=== PATIENT | female | born 1995 | race Caucasian/White ===

== ENCOUNTER 2025-03-04 08:52 | Emergency (ER) | payer OTHER, SELFPAY ==
[2025-03-04 08:57] VITALS: BP 108/69; PULSE 94; RESP 18; TEMP 37; O2SAT 100; BMI 19.2
--- NOTE | 2025-03-04 09:24 | ED_ITS ---
HPI - General Adult General Chief complaint: Sore Throat Stated complaint: possible strep throat Time Seen by Provider: 03/04/25 09:04 History of Present Illness HPI narrative: Patient is a 30-year-old woman who comes in today with a 2 day history of pharyngitis. She has had no fevers no chills no night sweats. Her children have croup but no strep. She has been eating and drinking normally. She has no cough no sputum production. She does not smoke but she does vape. Patient has no other major complaints or concerns. Related Data Previous Rx's ?Medication ?Instructions ?Recorded prednisone 20 mg tablet 20 mg PO BID #10 tabs Allergies Allergy/AdvReac Type Severity Reaction Status Date / Time No Known Drug Allergies Allergy Verified 03/04/25 09:00 Review of Systems Status of ROS: Reports: 10 or more systems reviewed and unremarkable except as noted in History and below Exam Narrative: Exam Narrative: EXAM GENERAL: Patient appears comfortable and well. EYES: No scleral icterus. ENT: Tympanic membranes normal with injection of the oropharynx. THYROID: no thyroid nodules or thyromegaly. LYMPH: No supraclavicular or cervical lymphadenopathy. SKIN: Visible skin seen during exam normal or with benign process only. EXT: No dependent lower extremity pedal edema. HEART: Regular rate and rhythm with no murmurs, rubs, or gallops. LUNGS: Clear to auscultation bilaterally with no crackles or wheezes. ABD: Soft, non tender, non distended. PSYCH: Good eye contact, speech is not pressured. Const: Vital Signs, click to edit/add: Vital Signs - 24 hr 03/04/25 08:57 Temperature 98.6 F Pulse Rate [Right Pulse Oximeter] 94 Respiratory Rate 18 Blood Pressure [Ri ght Upper Arm] 108/69 Pulse Oximetry 100 Oxygen Delivery Me thod Room Air Course Course ED Course: Patient seen examined rapid strep pending. Vital Signs Vital signs: Initial Vital Signs Temperature 98.6 F 03/04/25 08:57 Temperature Source Temporal Artery Scan 03/04/25 08:57 Pulse Rate 94 03/04/25 08:57 Pulse Rhythm Regular 03/04/25 08:57 Pulse Strength 3+ Normal 03/04/25 08:57 Respiratory Rate 18 03/04/25 08:57 Blood Pressure 108/69 03/04/25 08:57 Blood Pressure Mean 82 03/04/25 08:57 Blood Pressure Position Sitting 03/04/25 08:57 Pulse Oximetry 100 03/04/25 08:57 Oxygen Delivery Method Room Air 03/04/25 08:57 Vital Signs Temperature 98.6 F 03/04/25 08:57 Pulse Rate 94 03/04/25 08:57 Respiratory Rate 18 03/04/25 08:57 Blood Pressure 108/69 03/04/25 08:57 Pulse Oximetry 100 03/04/25 08:57 Oxygen Delivery Method Room Air 03/04/25 08:57 Temperature 98.6 F 03/04/25 08:57 Pulse Rate 94 03/04/25 08:57 Respiratory Rate 18 03/04/25 08:57 Blood Pressure 108/69 03/04/25 08:57 Pulse Oximetry 100 03/04/25 08:57 Oxygen Delivery Method Room Air 03/04/25 08:57 Medical Decision Making MDM Narrative Medical decision making narrative: Patient's rapid strep comes back negative. She has no other signs of bacterial infection. She does have a tobacco/vaping history and her pain is quite severe. I see no evidence of peritonsillar abscess. I did place her on a short course of prednisone and asked her to continue to take Tylenol as needed. She follow- up with her primary physician as needed. Lab Data Labs: Lab Results 03/04/25 Range/Units 09:15 SARS-CoV-2 (PCR) Negative SARS-CoV-2 (Negative) Influenza Type A (PCR) Negative PCR FLU A (Negative) Influenza Type B (PCR) Negative PCR FLU B (Negative) RSV (PCR) Negative PCR RSV (Negative) Group A Strep DNA NOT DETECTED (Not Detectd) Discharge Plan Discharge Clinical Impression: Pharyngitis Patient Disposition: Home, Self-Care Condition: Stable Instructions: Pharyngitis (ED) Additional Instructions: Prednisone as directed Tylenol 1000 mg 3 times a day as needed Continue current and activity level Follow-up with your doctor as needed. Activity Level: No Restrictions Discharge Diet: Regular Prescriptions: New prednisone 20 mg tablet 20 mg PO BID Qty: 10 0RF Follow Up/Referrals: Provider,Not a Local [Primary Care Provider, Family Practice] Stand Alone Forms: OUTSIDE THE BOX MARKETINGth Info Instructions
--- OUTSIDE RECORDS SUMMARY | 2025-03-04 09:30 | XMS_ITS | Clinical Summary ---
Author Organization [facility] Address [facility] [place] [address] Care Team Providers Care County Program Technician Name Role Phone Clinic, [facility] Pr ovider Allergies No known active allergies Medications MV-Min-Fe Fum-FA-DHA ( 1 PO) Acti ve ferrous sulfate 45 MG TBCR CR tablet Take 45 mg by mouth daily Active docusate sodium (COLACE) 100 MG capsule Take 100 mg by mouth 2 times daily Active ondansetron (ZOFRAN ODT) 4 MG ODT tab Take 4 mg by mouth as needed 07/24/2023 Active Active Problems Problem Noted Date Diagnosed Date 01/28/2024 delivery delivered 05/02/2020 Indication for care in labor or delivery Encounter for triage in patient 020 Social History Tobacco Use Types Packs/Day Years Used Date Smoking Tobacco: Every Day Cigarettes Smokeless Tobacco: Never Tobacco Cessation:Ready to Q uit: Not Asked; Counseling Given: Not Answered Alcohol Use Standard Drinks/Week Comments Not Currently 0 (1 standard drink = 0.6 oz pur e alcohol) Occasionally [place] Depression Scale Answer Date Recorded Last EPDS Total Score Not on file 01/29/2024 The thought of harming myself has occurred to me . Never 01/29/2024 Adolescent Education Answer Date Record ed Getting School Help Needed Not on file 01/24 Comments No Sex and Gender Information Value Date Recorded Sex Assigned at Not on file Legal Sex Female 12:30 PM CDT Gender Identity Not on file Sexual Orientation Not on file Last Filed Vital Signs Vital Sign Reading Time Taken Comments Blood Pressure 91/52 01/29/2024 8:16 AM CDT Pulse 68 01/29/2024 8:16 AM CDT Temperature 36.5 C (97.7 F) 01/29/2024 8:16 AM CDT Respiratory Rate 16 01/29/2024 8:16 AM CDT Oxygen Saturation 98% 01/29/2024 4:00 AM CDT Inhaled Oxygen Concentration - - Weight 64.4 kg (142 lb) 01/25/2024 11:16 AM CDT Height 170.2 cm (5' 7) 01/25/2024 11:16 AM CDT Body Mass Index 22.24 01/25/2024 11:16 AM CDT Plan of Treatment Health Maintenance Due Date Last Done Comments ADVANCE CARE PLANNING 1994 ANNUAL REVIEW OF HM ORDERS 1994 YEARLY PREVENTIVE VISIT 1997 HEPATITIS C SCREENING 02/18/2012 PAP 04/28/2022 04/28/2019, 07/13/2015 COVID-19 VACCINE ( season) 2024 PHQ-2 (once per calendar year) 2024 INFLUENZA VACCINE (#1) 2025 9, 04/03/2017, 03/07/2016, Additional history exists DTAP/TDAP/TD VACCINE (10 - Td or Tdap) 01/13/2029 01/13/2019, 03/31/2015, 06/24/2012, Additional history exists ZOSTER VACCINE (1 of 2) 02/18/2044 HEPATITIS B VACCINE Completed 1994, 1994, 1994 MENINGITIS VACCINE Aged Out 03/09/2009 No longer eligible based on patient's age to complete this topic HPV VACCINE Completed 06/24/2012, 12/05, 03/09/2009 HIV SCREENING Completed 10/27/2019, 08/08, 10/17/2014 PNEUMOCOCCAL VACCINE: PEDIATRICS (0 to 5 YEARS) AND AT-RISK PATIENTS (6 to 49 YEARS) Aged Out No longer eligible based on patient's age to complete this topic Procedures Procedure Name Priority Date/Time Associated Diagnosis Comments HIV ANTIGEN ANTIBODY COMBO Routine 10/27/2019 from Last 3 Months or Most Recently Relevant to Health Maintenance Results * HIV Antigen Antibody Combo (10/27/2019) HIV Antigen Antibody Combo non reactive Blood specimen (specimen) Patient Reported LAB - BLOOD ORDERABLES Final Re sult from Last 3 Months or Most Recently Relevant to Health Maintenance Insurance none (Work) [id number] [place] [address] [facility] [id number] [place] [address] [facility] Advance Directives For more information, please contact: [phone] * Full Code (Latest Code Status on File) Date Activated Date Inactivated Comments 01/28/2024 10:33 PM 01/29/2024 1:52 PM All basic a nd advanced life-sustaining interventions are performed as appropriate Question Answer Comments Code status determined by: Discussion with juan nt/ legal decision maker Care Teams County Program Technician Relationship Specialty Start Date End Date Clinic, [facility] [address] [address] PCP - General 12/03/22
--- OUTSIDE RECORDS SUMMARY | 2025-03-04 09:30 | XMS_ITS | Clinical Summary ---
Author Organization [facility] Address [address] [place] [address] Care Team Providers Care Production Engine Repairer Name Role Phone Janak Varela MD Primary Care Provider [phone] Source Comments You are receiving this document as you are listed as the primary care provider,follow-up provider, or the patient has been referred to you for consultation.This is in compliance with the Medicare and[facility] EHR Incentive Program,which states Providers who transition their patient to another setting of careor provider of care or refers their patient to another provider of care shouldprovide summary care record for each transition of care or referral. [facility] [employer] Allergies No known active allergies Medications vitamin-ferrous fumarate-folic acid (PRENATALPLUS) 27-1 MG tablet Take 1 Tablet by mouth daily. Active docusate sodium (COLACE) 100 MG capsule Take 100 mg by mouth two times a day. Active sertraline (ZOLOFT) 50 MG tabletIndicatio ns:Moderate episode of recurrent major depressive disorder (HRC),Anxiety (HRC) Take 1 Tablet by mouth daily. 60 Tablet 0 Active Additional Information Patient not taking.Reported on 09/08/2019 Active Problems Problem Noted Date Diagnosed Date Moderate episode of recurrent major depressive d isorder 08/16/2019 Anxiety 08/16/2019 History of herpes genitalis 12/16/2018 Resolved Problems Problem Noted Date Diagnosed Date Resolved Date (spontaneous vaginal delivery) 03/17/2019 04/28/2019 NST (non-stress test) nonreactive 03/16/2019 04/28/2019 Positive GBS test 03/16/2019 04/28/2019 Poor growth affecting management of mother in third trimester 03/12/2019 04/28/2019 Vaginal discharge during pre gnancy in third trimester 03/08/2019 04/28/2019 Supervision of other normal , antepartum 12/16/2018 04/28/2019 Careplan: [facility] 09/03/2018 04/28/2019 Overview (09/03/2018): This patient is enrolled in the [facility] [employer] Program. The program provides patients with support, education, referrals and resources during their . Reason for enrollment: cigarette smoking in Next urine drug screen: Not applicable CPS report:No Housing:Lives with FOB and their 3 year old son Family Home Visiting:No Work: stay at home mom For more information, please contact Brianda Bridges, [facility] Specialist, at [phone]. Herpes 08/16/2019 Immunizations Immunization Administration Dates Next Due 4vHPV (Gardasil) 06/24/2012,12/17/2010, 9 DTaP 12/20/1998, 5,1994,1993,1994 Flu Vac (3+ yrs) 04/03/2017, 5,06/24/2012,2008 HepA Ped/Adol (1-18 yrs) 01/12/2007,02/24/2006 HepB Ped/Adol (0-18 yrs) 1994,1994,0 1994 IPV (Polio) 12/20/1998, 5,1994,1993 Influenza IIV4 (Quadrivalent ) 0.5mL (72768) 04/19/2019,03/07/2016,03/17/2014 MCV4 (Menactra) 03/09/2009 MMR 12/20/1998,02/20/1995 Tdap 01/13/2019, 5,06/24/2012,2003 Family History Medical History Relation Name Comments High Cholesterol Mother Hypertension Mother No Known Problems Maternal Grandfather Hypertension Maternal Grandmother Cancer Paternal Grandfather Lymphom a Diabetes Paternal Grandfather Cancer Paternal Grandmother Lung Cancer, Breast Negative Family History Cancer, Colon Negative Family History Cancer, Ovary Negative Family History Heart Disease Negative Family History Osteoporosis Negative Family History Stroke Negative Family History Thyroid Disorder Negative Family History Relation Name Status Comments Father Alive Mother Alive Maternal Grandfather Alive Maternal Grandmother Alive Paternal Grandfather Paternal Grandmother Sister Lisa Alive Social History Tobacco Use Types Packs/Day Years Used Date Smoking Tobacco: Every Day Cigarettes 0.3 10 Smokeless Tobacco: Current Tobacco Cessation:Ready to Q uit: No; Counseling Given: No Comments:cutting down. Alcohol Use Standard Drinks/Week Comments No 0 (1 standard drink = 0.6 oz pur e alcohol) quit with AUDIT-C Answer Date Recorded Frequency of Alcohol Consumption Never 10/31/2018 Average Number of Drinks Not on file 019 Frequency of Binge Drinking Not on file 10/06 Depression Answer Date Recor ded Last EPDS Total Score 15 01/22/2020 Last EPDS Self Harm Result 0-->never 01/21 Comments Unknown Sex and Gender Information Value Date Recorded Sex Assigned at Not on file Legal Sex Female 1:08 PM CDT Gender Identity Not on file Sexual Orientation Not on file Occupation Industry Job Start Date Job End Date homemaker Not on file Not on file Not on file Last Filed Vital Signs Vital Sign Reading Time Taken Comments Blood Pressure 112/77 09/08/2019 4:43 PM DRY KILN FEEDER Pulse 96 09/08/2019 4:43 PM DRY KILN FEEDER Temperature 36.6 C (97.9 F) 09/08/2019 4:43 PM DRY KILN FEEDER Respiratory Rate 12 09/08/2019 4:43 PM DRY KILN FEEDER Oxygen Saturation 100% 09/08/2019 4:43 PM DRY KILN FEEDER Inhaled Oxygen Concentration - - Weight 56.7 kg (125 lb) 07/16/2019 2:26 PM DRY KILN FEEDER Height 170.2 cm (5' 7) 03/16/2019 11:55 AM CDT Body Mass Index 19.58 03/16/2019 11:55 AM CDT Plan of Treatment Health Maintenance Due Date Last Done Comments Hep C Screening (Preventive Services) 1994 Adult Preventive Visit 02/18/2012 Pneumococcal Vaccine (1 of 2 - PCV) 2013 Cervical Cancer Screening 04/28/20222018, 07/13/2015 (Completed) COVID-19 Vaccine ( season) 2024 Influenza Vaccine (#1) 2025 9, 04/03/2017, 03/07/2016, Additional history exists DTaP/Tdap/Td Vaccine (10 - Tdap) 01/13/2029 01/13/2019, 03/31/2015, 06/24/2012, Additional history exists Zoster/Shingles Vaccine (1 of 2) 02/18/2044 HepB Vaccine Completed 1994, 04/06, 1994 IPV (Polio) Vaccine Completed 12/20/1998, 1994, 1994, Additional history exists HepA Vaccine Completed 01/12/2007, 02/24/2006 MCV4 Vaccine Aged Out 03/09/2009 No longer eligi ble based on patient's age to complete this topic HPV Vaccine Completed 06/24/2012, 12/05, 03/09/2009 Chlamydia Discontinued 09/02/2018, 01/2016, 10/17/2014 (Completed), Additional history exists HIV Screening (Preventive Services) Completed 09/02/2018, 10/17/2014, 10/17/2014 (Completed) Hib Vaccine Aged Out No longer eligi ble based on patient's age to complete this topic Meningococcal B Vaccine Aged Out No l onger eligible based on patient's age to complete this topic Procedures Procedure Name Priority Date/Time Associated Diagnosis Comments CYTOLOGY (PAP) Routine 04/28/2019 11:29 AM CDT Screening for malignant neoplasm of cervix CHLAMYDIA & GC (14 YEARS & OLDER) Routine 09/02/2018 12:20 PM DRY KILN FEEDER Screening examination for venereal disease HIV-1 P24 AND HIV-1/HIV-2 ANTIBODIES Routine 09/02/2018 12:15 PM DRY KILN FEEDER Screening examination for venereal disease from Last 3 Months or Most Recently Relevant to Health Maintenance Results * PAP Test (04/28/2019 11:29 AM CDT) Case Report Pap Case: [id number] Authorizing Provider: Tiarra Lara MD Collected: 04/28/2019 11:29 AM Ordering Location: [facility] Received: 04/28/2019 12:23 PM Obstetrics/Gynec ology First Screen: Rosanna Urena CT (ASCP) Specimen: Pap Test, Routine, Cervix/Endocervix 04/29/2019 3:13 PM CDT [facility] Pap Specimen Adequacy Satisfactory for evaluation, endocervical/meyers sformation zone component present. 04/29/2019 3:13 PM CDT [facility] Pap Interpretation Negative for intraepithelial lesion or malignancy (NILM). 04/29/2019 3:13 PM CDT [facility] at 1513 CDT Gross Description The specimen is received in SurePath fixative and properly labeled. 1 Pap-stained SurePath slide is prepared. 04/29/2019 3:13 PM CDT [facility] Pap Disclaimer The Pap test is a screening test designed to aid in the detection of cervical cancer and its precursor lesions. It is not a diagnostic procedure and should not be used as the sole means of detecting cervical cancer. Both false-positive and false-negative reports may occur. 04/29/2019 3:13 PM CDT [facility] Embedded Images 3:13 PM CDT [facility] Other Specimen Type ENTIRE ENDOCERVIX / Unknown 04/28/2019 11:29 AM CDT 04/28/2019 12:23 PM CDT Comment:LMP: Patient's last menstrual period was 06/26/2018 (exact date). us Tiarra Lara MD LAB PATHOLOGY Final Result [facility] [address] [place] [address], [facility] * CHLAMYDIA & GC (09/02/2018 12:20 PM DRY KILN FEEDER) Chlamydia Trachomatis STD Negative Negative PN SOFT Comment: Test Performed by Public Accountant [employer] CLIA Number [id number] N. gonorrhoeae STD Negative Negative PN SOFT Comment: Test Performed by Public Accountant Mediated Amplification Performed at [facility], [address] [place] [id number] CLIA Number [id number] Source STD Cervix PN SOFT Comment:CLIA Number [id number] 09/02/2018 12:2 0 PM DRY KILN FEEDER 09/02/2018 3:10 PM DR[employer] KILN FEEDER us Ashlyn Gomez APRN, CASHIERS SUPERVISOR LAB_1 Final R esult Performing Organization Address City/[facility]/ZIP Co de Phone Number PN SOFT [address] [place] [address] * LAB HIV-1 p24 AND HIV-1/HIV-2 ANTIBODIES (09/02/2018 12:15 PM DRY KILN FEEDER) HIV-1 p24 Ag and HIV-1/HIV-2 Ab Nonreactive Nonreactive PN SOFT 09/02/2018 12:1 5 PM DRY KILN FEEDER 09/02/2018 3:07 PM DRY KILN FEEDER Narrative PN SOFT - 09/02/2018 3:46 PM DRY KILN FEEDER Performed at [facility], [address] [place] [address] CLIA number [id number] us Ashlyn Gomez APRN, CASHIERS SUPERVISOR LAB_1 Final R esult Performing Organization Address [facility] de Phone Number PN SOFT [address] [place] [address] from Last 3 Months or Most Recently Relevant to Health Maintenance Insurance [employer] Advance Directives * Full Code (Latest Code Status on File) Date Activated Date Inactivated Comments 03/16/2019 3:36 PM 03/17/2019 9:28 PM Care Teams Production Engine Repairer Relationship Specialty Start [place] [id number] [facility] [place] [address] PCP - General Internal Medicine 07/30/19
[2025-03-04 10:04] LABS: Strep A DNA Probe* NOT DETECTED (Not Detectd)
[2025-03-04 10:05] LABS: PCR FLU A Negative PCR FLU A (Negative); PCR FLU B Negative PCR FLU B (Negative); PCR RSV Negative PCR RSV (Negative); SARS PCR* Negative SARS-CoV-2 (Negative)
== END 2025-03-04 10:22 | disposition home or self-care (01) ==
PROVIDERS: Emergency Provider Internal Medicine
DX: J02.9 Acute pharyngitis, unspecified (principal)
CPT/HCPCS: 87631; 87651; 99282; 99283